=== PATIENT | female | born 1980 | race Caucasian/White ===

== ENCOUNTER 2017-04-30 20:41 | Emergency (ER) | payer OTHER ==
[2017-04-30] MEDS ORDERED: MAG HYDROX/AL HYDROX/SIMETH 30 ML UNIT-DOSE CUP PO ONE (21:35)
[2017-04-30] MEDS ORDERED: LIDOCAINE VISCOUS 2% ORAL/TOP 20 ML UNIT-DOSE CUP MM ONE (21:35)
--- NOTE | 2017-04-30 21:54 | PDOC ---
History of Present Illness - History of Present Illness Initial Comments: 37 year old female with HIV (on ATRIPLA inconsistency) 04/30/17 21:48 04/30/17 21:54 <Ivan Boudreaux - Last Filed: 04/30/17 21:54> <Rosanna Lane - Last Filed: 04/30/17 23:31> - General Stated Complaint: INTOX Time Seen by Provider: 04/30/17 21:14 *Physical Exam - Vital Signs Last Vital Signs Temp Pulse Resp BP Pulse Ox 97.6 F 88 18 111/65 98 04/30/17 22:44 04/30/17 22:44 04/30/17 22:44 04/30/17 22:44 04/30/17 22:44 <Rosanna Lane - Last Filed: 04/30/17 23:31> ED Treatment Course - LABORATORY CBC & Chemistry Diagram: 04/30/17 23:15 04/30/17 23:15 - ADDITIONAL ORDERS Additional order review: 04/30/17 23:15 RBC 4.62 MCV 87.2 MCHC 33.4 RDW 14.5 MPV 8.7 Neutrophils % 72.3 Lymphocytes % 21.3 Monocytes % 5.5 Eosinophils % 0.6 Basophils % 0.3 - Medications Given in the ED: ED Medications Discontinued Medications Generic Name Dose Route Start Last Admin Trade Name Ann PRN Reason Stop Dose Admin Al Hydroxide/Mg Hydroxide 30 ml 04/30/17 21:35 04/30/17 23:02 Mylanta Oral Suspension - PO 04/30/17 21:36 30 ml ONCE ONE Administration Lidocaine HCl 20 ml 04/30/17 21:35 04/30/17 23:02 Xylocaine 2% Viscous Oral - MM 04/30/17 21:36 20 ml ONCE ONE Administration Ondansetron HCl 4 mg 04/30/17 21:57 04/30/17 23:02 Zofran Injection IVPUSH 04/30/17 21:58 4 mg ONCE ONE Administration Sodium Chloride 1,000 ml 04/30/17 21:59 04/30/17 23:02 Normal Saline - IV 04/30/17 22:00 1,000 ml ONCE ONE Administration <Rosanna Lane - Last Filed: 04/30/17 23:31>
[2017-04-30] MEDS ORDERED: ONDANSETRON 4 MG/2 ML VIAL IVPUSH ONE (21:57)
[2017-04-30] MEDS ORDERED: SODIUM CHLORIDE 0.9% 1000 ML INFUS.BAG IV ONE (21:59)
[2017-04-30] MEDS ORDERED: MAG HYDROX/AL HYDROX/SIMETH 30 ML UNIT-DOSE CUP ONE (22:34)
[2017-04-30] MEDS ORDERED: LIDOCAINE VISCOUS 2% ORAL/TOP 20 ML UNIT-DOSE CUP ONE (22:34)
[2017-04-30] MEDS ORDERED: ONDANSETRON 4 MG/2 ML VIAL ONE (22:35)
[2017-04-30 22:46] VITALS: BP 111/65; PULSE 88; TEMP 97.6; BMI 20.1
[2017-04-30 23:25] LABS: BASOPHIL 0.3 % (0-2.0); EOSINOPHIL 0.6 % (0-4.5); MCH 29.1 pg (25.7-33.7); MCHC 33.4 g/dl (32.0-36.0); MEAN CELL VOLUME 87.2 fl (80-96); MEAN PLT VOLUME 8.7 fl (7.5-11.1); NEUTROPHILS 72.3 % (42.8-82.8); PLATELET COUNT 215 K/MM3 (134-434); RDW 14.5 % (11.6-15.6); WHITE BLOOD COUNT 4.5 K/mm3 (4.0-10.0)
--- NOTE | 2017-04-30 23:39 | PDOC ---
History of Present Illness - History of Present Illness Initial Comments: 04/30/17 23:44 The patient is a thin, sickly, 37 year old female, with a significant past medical history of HIV and asthma, who presents to the emergency department with pain to her anterior lower right rib cage and vomiting for about a week. The patient is able to volunteer information about past medical history. She reports her pain as "crampy", 10/10 in severity. She denies chest pain, shortness of breath, headache and dizziness. She denies fever, chills, diarrhea and constipation. She denies dysuria, frequency, urgency and hematuria. Allergies: sulfa drugs Past surgical history: none reported <Gema Ramires - Last Filed: 05/01/17 00:45> <Rosanna Lane - Last Filed: 05/01/17 03:08> - General Chief Complaint: Alcohol intoxication Stated Complaint: INTOX Time Seen by Provider: 04/30/17 21:14 Past History <Gema Ramires - Last Filed: 05/01/17 00:45> - Suicide/Smoking/Psychosocial Hx Smoking History: Current every day smoker Have you smoked in the past 12 months: Yes Number of Cigarettes Smoked Daily: 40 Information on smoking cessation initiated: No Hx Alcohol Use: Yes Drug/Substance Use Hx: No <Rosanna Lane - Last Filed: 05/01/17 03:08> - Past Medical History Allergies/Adverse Reactions: Allergies Allergy/AdvReac Type Severity Reaction Status Date / Time Sulfa (Sulfonamide Allergy Verified 04/30/17 22:46 Antibiotics) Home Medications: Ambulatory Orders NK [No Known Home Medication] 04/30/17 Review of Systems - Review of Systems Able to Perform ROS?: Yes Comments:: 04/30/17 23:44 CONSTITUTIONAL: Absent: fever, chills, diaphoresis, generalized weakness, malaise, loss of appetite HEENT: Absent: rhinorrhea, nasal congestion, throat pain, throat swelling, difficulty swallowing, mouth swelling, ear pain, eye pain, visual Changes CARDIOVASCULAR: Absent: chest pain, syncope, palpitations, irregular heart rate, lightheadedness , peripheral edema RESPIRATORY: Absent: cough, shortness of breath, dyspnea with exertion, orthopnea, wheezing, stridor, hemoptysis GASTROINTESTINAL: (+) right upper abdominal pain, nausea, vomiting, Absent: abdominal distension, diarrhea, constipation, melena, hematochezia GENITOURINARY: Absent: dysuria, frequency, urgency, hesitancy, hematuria, flank pain, genital pain MUSCULOSKELETAL: Absent: myalgia, arthralgia, joint swelling SKIN: Absent: rash, itching, pallor HEMATOLOGIC/IMMUNOLOGIC: Absent: easy bleeding, easy bruising, lymphadenopathy, frequent infections ENDOCRINE: Absent: unexplained weight gain, unexplained weight loss, heat intolerance, cold intolerance NEUROLOGIC: Absent: headache, focal weakness or paresthesias, dizziness, unsteady gait, seizure, mental status changes, bladder or bowel incontinence PSYCHIATRIC: Absent: anxiety, depression, suicidal or homicidal ideation, hallucinations. <Gema Ramires - Last Filed: 05/01/17 00:45> *Physical Exam - Vital Signs Last Vital Signs Temp Pulse Resp BP Pulse Ox 97.6 F 88 18 111/65 98 04/30/17 22:44 04/30/17 22:44 04/30/17 22:44 04/30/17 22:44 04/30/17 22:44 - Physical Exam Comments: 04/30/17 23:46 GENERAL: (+) thin and sick appearing. Awake and alert. No acute distress. HEENT: Normocephalic, atraumatic. PERRLA, EOMI. No conjunctival pallor. Sclera are non- icteric. Moist mucous membranes. Oropharynx is clear. NECK: Supple. Full ROM. No JVD. Carotid pulses 2+ and symmetric, without bruits. No thyromegaly. No lymphadenopathy. CARDIOVASCULAR: Regular rate and rhythm. No murmurs, rubs, or gallops. Distal pulses are 2+ and symmetric. PULMONARY: No evidence of respiratory distress. Lungs clear to auscultation bilaterally. No wheezing, rales or rhonchi. ABDOMINAL: Soft. Non-tender. Non-distended. No rebound or guarding. No organomegaly. Normoactive bowel sounds. MUSCULOSKELETAL Normal range of motion at all joints. No bony deformities or tenderness. No CVA tenderness. EXTREMITIES: No cyanosis. No clubbing. No edema. No calf tenderness. SKIN: Warm and dry. Normal capillary refill. No rashes. No jaundice. NEUROLOGICAL: Alert, awake, appropriate. Cranial nerves 2-12 intact. Normoreflexic in the upper and lower extremities. Normal speech. Toes are down-going bilaterally. Gait is normal without ataxia. PSYCHIATRIC: Cooperative. Good eye contact. Appropriate mood and affect. <Gema Ramires - Last Filed: 05/01/17 00:45> - Vital Signs Last Vital Signs Temp Pulse Resp BP Pulse Ox 97.6 F 88 18 111/65 98 04/30/17 22:44 04/30/17 22:44 04/30/17 22:44 04/30/17 22:44 04/30/17 22:44 <Rosanna Lane - Last Filed: 05/01/17 03:08> ED Treatment Course - LABORATORY CBC & Chemistry Diagram: 04/30/17 23:15 04/30/17 23:15 - ADDITIONAL ORDERS Additional order review: 04/30/17 23:15 RBC 4.62 MCV 87.2 MCHC 33.4 RDW 14.5 MPV 8.7 Neutrophils % 72.3 Lymphocytes % 21.3 Monocytes % 5.5 Eosinophils % 0.6 Basophils % 0.3 - Medications Given in the ED: ED Medications Discontinued Medications Generic Name Dose Route Start Last Admin Trade Name Elliotq PRN Reason Stop Dose Admin Al Hydroxide/Mg Hydroxide 30 ml 04/30/17 21:35 04/30/17 23:02 Mylanta Oral Suspension - PO 04/30/17 21:36 30 ml ONCE ONE Administration Lidocaine HCl 20 ml 04/30/17 21:35 04/30/17 23:02 Xylocaine 2% Viscous Oral - MM 04/30/17 21:36 20 ml ONCE ONE Administration Ondansetron HCl 4 mg 04/30/17 21:57 04/30/17 23:02 Zofran Injection IVPUSH 04/30/17 21:58 4 mg ONCE ONE Administration Sodium Chloride 1,000 ml 04/30/17 21:59 04/30/17 23:02 Normal Saline - IV 04/30/17 22:00 1,000 ml ONCE ONE Administration <Gema Ramires - Last Filed: 05/01/17 00:45> - LABORATORY CBC & Chemistry Diagram: 04/30/17 23:15 04/30/17 23:15 - ADDITIONAL ORDERS Additional order review: 04/30/17 23:15 RBC 4.62 MCV 87.2 MCHC 33.4 RDW 14.5 MPV 8.7 Neutrophils % 72.3 Lymphocytes % 21.3 Monocytes % 5.5 Eosinophils % 0.6 Basophils % 0.3 - Medications Given in the ED: ED Medications Discontinued Medications Generic Name Dose Route Start Last Admin Trade Name Ann PRN Reason Stop Dose Admin Al Hydroxide/Mg Hydroxide 30 ml 04/30/17 21:35 04/30/17 23:02 Mylanta Oral Suspension - PO 04/30/17 21:36 30 ml ONCE ONE Administration Lidocaine HCl 20 ml 04/30/17 21:35 04/30/17 23:02 Xylocaine 2% Viscous Oral - MM 04/30/17 21:36 20 ml ONCE ONE Administration Ondansetron HCl 4 mg 04/30/17 21:57 04/30/17 23:02 Zofran Injection IVPUSH 04/30/17 21:58 4 mg ONCE ONE Administration Sodium Chloride 1,000 ml 04/30/17 21:59 04/30/17 23:02 Normal Saline - IV 04/30/17 22:00 1,000 ml ONCE ONE Administration <Rosanna Lane - Last Filed: 05/01/17 03:08> Medical Decision Making - Medical Decision Making 04/30/17 23:35 37-year-old female who had initially gone to [facility] for alcohol detox for intake was transported here for vomiting and right sided abd pain. [facility] HIV-last week she has her viral load checked and she says it "was not good" She states her regular physician is in the city .she came to [place] for detox She is a thin female in a position on the gurney initially not cooperative but did allow examination and lab work done plan cbc,comp,antiemetics,IVF and reassess <Rosanna Lane - Last Filed: 05/01/17 03:08> *DC/Admit/Observation/Transfer - Attestations Scribe Attestion: 04/30/17 23:51 Documentation prepared by Gema Ramires, acting as medical cost consultant for Rosanna Lane MD <Gema Ramires - Last Filed: 05/01/17 00:45> <Rosanna Lane - Last Filed: 05/01/17 03:08> Diagnosis at time of Disposition: Alcohol abuse - Discharge Dispostion Disposition: HOME Condition at time of disposition: Stable - Referrals Referrals: STAFF,NOT ON [Primary Care Provider] - - Patient Instructions Printed Discharge Instructions: DI for Alcohol Abuse
[2017-05-01 00:08] LABS: ANION GAP 11 (8-16); BILIRUBIN,TOTAL 0.1 mg/dL (0.2-1.0); CALCIUM 8.3 mg/dL (8.5-10.1); CO2 23 mmol/L (21-32); CREATININE 0.6 mg/dL (0.55-1.02); GLUCOSE,RANDOM 79 mg/dL (74-106); MAGNESIUM 2.1 mg/dL (1.8-2.4); PHOSPHOROUS 3.1 mg/dL (2.5-4.9); SGOT/AST 10 U/L (15-37); SGPT/ALT 16 U/L (12-78); TOT PROT 7.4 g/dl (6.4-8.2)
[2017-05-01 00:11] LABS: ALK PHOS 65 U/L (45-117); CPK 92 IU/L (26-192); TROPONIN I < 0.02 ng/ml (0.00-0.05)
[2017-05-01 03:08] LABS: URINE MARIJUANA THC NEGATIVE ng/ml (CUTOFF=50)
--- NOTE | 2017-05-01 10:19 | EKG ---
Test Reason : Blood Pressure : / mmHG Vent. Rate : 082 BPM Atrial Rate : 082 BPM P-R Int : 228 ms QRS Dur : 078 ms QT Int : 384 ms P-R-T Axes : 066 047 054 degrees QTc Int : 448 ms SINUS RHYTHM WITH 1ST DEGREE A-V BLOCK POSSIBLE LEFT ATRIAL ENLARGEMENT SLOW R WAVE PROGRESSION V1-V3 BORDERLINE ECG NO PREVIOUS ECGS AVAILABLE REPEAT EKG IF CLINICALLY INDICATED Confirmed by TYRON SHAH MD ([id number]) on 05/01/2017 10:18:57 AM Referred By: Confirmed By:TYRON SHAH MD
[2017-05-03 13:09] LABS: NYDOH RESULT SEE FILE COPY
[2017-05-17 16:23] LABS: PCP BLOOD NEGATIVE
== END 2017-05-01 03:16 | disposition home or self-care (01) ==
LOC: JER 20:41
PROC: 3E033GC Introduction of Other Therapeutic Substance into Peripheral Vein, Percutaneous Approach (ICD-10-PCS; principal; 2017-04-30)
PROC: 3E0337Z Introduction of Electrolytic and Water Balance Substance into Peripheral Vein, Percutaneous Approach (ICD-10-PCS; 2017-04-30)
DX: F10.10 Alcohol abuse, uncomplicated (principal); J45.909 Unspecified asthma, uncomplicated; F17.210 Nicotine dependence, cigarettes, uncomplicated; Z21 Asymptomatic human immunodeficiency virus [HIV] infection status
CPT/HCPCS: 36415; 80053; 80307; 83690; 83735; 84100; 84484; 84703; 85025; 86359; 86360; 93005; 93010; 99284-25

== ENCOUNTER 2017-05-01 04:44 | Inpatient (IN) | payer OTHER ==
--- NOTE | 2017-05-01 05:07 | HP ---
CIWA Score - CIWA Score Nausea/Vomitin Muscle Tremors: 3 Anxiety: 3 Agitation: 3 Paroxysmal Sweats: 1-Minimal Palms Moist Orientation: 0-Oriented Tacttile Disturbances: 2-Mild Itch/Numbness/Burn Auditory Disturbances: 2-Mild Harshness/Frighten Visual Disturbances: 1-Very Mild Sensitivity Headache: 2-Mild CIWA-Ar Total Score: 20 Admission ROS BHS - HPI Chief Complaint: I NEED HELP TO STOP DRINKING ALCOHOL AND COCAINE Allergies/Adverse Reactions: Allergies Allergy/AdvReac Type Severity Reaction Status Date / Time Sulfa (Sulfonamide Allergy Verified 04/30/17 22:46 Antibiotics) History of Present Illness: THIS 37 YEARS OLD FEMALE WITH ALCOHOL AND COCAINE DEPENDENCE,MEDICALLY CLEAR FROM [facility] ER FOR DETOX, LAST TREATMENT [facility] 01/20 HISTORY OF HIV SINCE 2015 NON OMPLIANCE DID NOT TAKE MEDICATION SINCE 10/20 WEIGHT LOSS NO SIGNIFICANT PERIOD OF SOBRIETY Exam Limitations: No Limitations - Ebola screening Have you traveled outside of the country in the last 21 days: No - Review of Systems Constitutional: Loss of Appetite, Malaise, Night Sweats, Changes in sleep, Weakness, Unintentional Wgt. Loss EENT: reports: Nose Congestion Respiratory: reports: No Symptoms reported Cardiac: reports: Palpitations GI: reports: Diarrhea, Nausea, Poor Appetite, Vomiting : reports: No Symptoms Reported Musculoskeletal: reports: Back Pain, Muscle Pain Integumentary: reports: Dryness Neuro: reports: Headache, Tremors Endocrine: reports: No Symptoms Reported Hematology: reports: No Symptoms Reported, Other (HIV SINCE 2015) Psychiatric: reports: No Sypmtoms Reported, Judgement Intact, Mood/Affect Appropiate, Orientated x3 Patient History - Patient Medical History Hx Anemia: No Hx Asthma: Yes (ON ALBUTEROL INHALER) Hx Chronic Obstructive Pulmonary Disease (COPD): No Hx Cancer: No Hx Cardiac Disorders: No Hx Congestive Heart Failure: No Hx Hypertension: No Hx Hypercholesterolemia: No Hx Pacemaker: No HX Cerebrovascular Accident: No Hx Seizures: No Hx Dementia: No Hx Diabetes: No Hx Gastrointestinal Disorders: No Hx Liver Disease: No Hx Genitourinary Disorders: No Hx Sexually Transmitted Disorders: No Hx Renal Disease (ESRD): No Hx Thyroid Disease: No Hx Human Immunodeficiency Virus (HIV): Yes (SINCE 2015 NON COMPLIANCE DID NOT TAKE MEDICATION SINCE 10/20) Hx Hepatitis C: No Hx Depression: No Hx Suicide Attempt: No Hx Bipolar Disorder: No Hx Schizophrenia: No Other Medical History: NO SUICIDAL,NO HOMICIDAL - Patient Surgical History Past Surgical History: No - PPD History Previous Implant?: Yes Documented Results: Negative w/o proof Implanted On Prior R Admission?: No PPD to be Administered?: Yes - Reproductive History Patient is a Female of Child Bearing Age (11 -55 yrs old): Yes Last Menstrual Period: 04/25/17 Patient : No - Smoking Cessation Smoking history: Current every day smoker Have you smoked in the past 12 months: Yes Aproximately how many cigarettes per day: 20 Hx Chewing Tobacco Use: No Initiated information on smoking cessation: Yes 'Breaking Loose' booklet given: 05/01/17 - Substance & Tx. History Hx Alcohol Use: Yes Hx Substance Use: Yes Substance Use Type: Alcohol, Cocaine Hx Substance Use Treatment: Yes ([facility] 01/20) - Substances Abused Alcohol Route: Oral Frequency: Daily Amount used: 2 PINTS OF VODKA Age of first use: 14 Date of Last Use: 04/30/17 Cocaine Route: Smoking Frequency: Daily Amount used: 40$ Age of first use: 19 Date of Last Use: 04/29/17 Family Disease History - Family Disease History Family History: Denies Admission Physical Exam BHS - Vital Signs Vital Signs: Vital Signs Period Temp Pulse Resp BP Sys/Murphy Pulse Ox Last 24 Hr 96.3 F 81 20 135/107 - Physical General Appearance: Yes: Moderate Distress, Tremorous, Irritable, Sweating, Anxious HEENTM: Yes: Normal ENT Inspection, Pharynx Normal, Pale Conjunctivae L Respiratory: Yes: Lungs Clear, Normal Breath Sounds, No Respiratory Distress Neck: Yes: Supple, Trachea in good position Breast: Yes: Breast Exam Deferred Cardiology: Yes: Within Normal Limits, Regular Rhythm, Regular Rate, S1, S2 Abdominal: Yes: Within Normal Limits, Normal Bowel Sounds, Non Tender, Flat, Soft Genitourinary: Yes: Within Normal Limits Back: Yes: Normal Inspection, Muscle Spasm Musculoskeletal: Yes: Back pain, Muscle Pain Extremities: Yes: Within Normal Limits, Normal Range of Motion, Tremors Neurological: Yes: enrober tender II-XII NML intact, Fully Oriented, Alert, Motor Strength 5/5 Integumentary: Yes: Dry Lymphatic: Yes: Within Normal Limits - Diagnostic (1) Alcohol dependence with uncomplicated withdrawal Current Visit: Yes Status: Acute (2) Alcohol dependence with uncomplicated intoxication Current Visit: Yes Status: Acute (3) Syncope Current Visit: Yes Status: Acute (4) Weight loss Current Visit: Yes Status: Acute (5) HIV (human immunodeficiency virus infection) Current Visit: Yes Status: Acute (6) Nicotine dependence Current Visit: Yes Status: Acute Cleared for Admission BHS - Detox or Rehab S Level of Care: Medically Managed Detox Regimen/Protocol: Librium BHS Breath Alcohol Content Breath Alcohol Content: 0 Vital Signs - Vital Signs Vital Signs Refused: No Temperature: 96.3 F Temperature Source: Oral Pulse Rate: 81 Respiratory Rate: 20 Blood Pressure: 135/107 BP Location: Left Arm - Height Height: 5 ft 2 in - Weight Weight: 103 lb Body Mass Index (BMI): 18.8
[2017-05-01 05:08] VITALS: BMI 18.8
[2017-05-01] MEDS ORDERED: guaiFENesin/D-METHORPHAN HB 10 ML UNIT-DOSE CUPS PO PRN (05:21)
[2017-05-01] MEDS ORDERED: MAGNESIUM CITRATE 300 ML BOTTLE PO PRN (05:21)
[2017-05-01] MEDS ORDERED: ACETAMINOPHEN 325 MG TABLET (FP) PO PRN (05:21)
[2017-05-01] MEDS ORDERED: MENTHOL/PHENOL 1 EACH UD MM PRN (05:21)
[2017-05-01] MEDS ORDERED: chlordiazePOXIDE HCL 25 MG CAPSULE PO PRN (05:21)
[2017-05-01] MEDS ORDERED: MAG HYDROX/AL HYDROX/SIMETH 30 ML UNIT-DOSE CUP PO PRN (05:21)
[2017-05-01] MEDS ORDERED: hydrOXYzine PAMOATE 25 MG CAPSULE (FP) PO PRN (05:21)
[2017-05-01] MEDS ORDERED: LOPERAMIDE HCL 2 MG CAPSULE PO PRN (05:21)
[2017-05-01] MEDS ORDERED: NICOTINE POLACRILEX 2 MG GUM BC PRN (05:21)
[2017-05-01] MEDS ORDERED: MAGNESIUM HYDROX 2400MG/30ML ORAL SUSPENSION 30 ML CUP PO PRN (05:21)
[2017-05-01] MEDS ORDERED: IBUPROFEN 400 MG TABLET (FP) PO PRN (05:21)
[2017-05-01] MEDS ORDERED: P-EPHED 60MG/TRIPROLIDI 2.5MG TABLET PO PRN (05:21)
[2017-05-01] MEDS: chlordiazePOXIDE HCL 25 MG CAPSULE PO SCH ×4 (06:12→22:22)
[2017-05-01] MEDS: PRENATAL VITAMINS W/ FOLIC ACID TABLET (FP) PO SCH (10:30)
[2017-05-01] MEDS: NICOTINE 21 MG/24 HOURS TOPICAL PATCH TD SCH (10:31)
--- NOTE | 2017-05-01 11:44 | PN ---
S CIWA - CIWA Score Nausea/Vomitin-No Nausea/No Vomiting Muscle Tremors: 4-Moderate,w/Arms Extend Anxiety: 3 Agitation: 4-Moderately Restless Paroxysmal Sweats: 3 Orientation: 0-Oriented Tacttile Disturbances: 0-None Auditory Disturbances: 0-None Visual Disturbances: 0-None Headache: 0-None Present CIWA-Ar Total Score: 14 BHS Progress Note (SOAP) Subjective: tired sweats shakes interrupted sleep agitation Objective: 05/01/17 11:43 Vital Signs Temperature 98.1 F 05/01/17 10:38 Pulse Rate 81 05/01/17 10:38 Respiratory Rate 18 05/01/17 10:38 Blood Pressure 117/77 05/01/17 10:38 O2 Sat by Pulse Oximetry (%) labs pending AAOx3 ambulating no acute distress Assessment: 05/01/17 11:43 withdrawal sx Plan: continue detox increase fluids labs pending
[2017-05-01] MEDS: FLU VACCINE QUAD 60 MCG/0.5 ML (MDV 17-18) IM ONE ×2 (13:10→13:26)
[2017-05-01 15:32] LABS: URINE APPEARANCE SLCLOUDY; URINE BILIRUBIN NEGATIVE (NEGATIVE); URINE BLOOD NEGATIVE (NEGATIVE); URINE COLOR DKYELLOW; URINE GLUCOSE (UA) NEGATIVE (NEGATIVE); URINE KETONE NEGATIVE (NEGATIVE); URINE LEUK ESTERASE TRACE (NEGATIVE); URINE NITRITE NEGATIVE (NEGATIVE); URINE UROBILINOGEN NEGATIVE mg/dL (0.2-1.0)
[2017-05-01 15:33] LABS: URINE PROTEIN 1+ (NEGATIVE)
[2017-05-01 15:38] LABS: URINE MUCUS MANY; URINE RBC 1 /hpf (0-3); URINE WBC 8 /hpf (3-5)
[2017-05-01] MEDS: diphenhydrAMINE HCL 50 MG CAPSULE PO PRN (22:22)
[2017-05-01] MEDS: THIAMINE HCL 100 MG TABLET (FP) PO SCH (22:22)
[2017-05-02] MEDS: chlordiazePOXIDE HCL 25 MG CAPSULE PO SCH ×4 (05:56→22:32)
--- NOTE | 2017-05-02 09:52 | EKG ---
Test Reason : Blood Pressure : / mmHG Vent. Rate : 068 BPM Atrial Rate : 068 BPM P-R Int : 222 ms QRS Dur : 070 ms QT Int : 396 ms P-R-T Axes : 068 054 061 degrees QTc Int : 421 ms SINUS RHYTHM WITH MARKED SINUS ARRHYTHMIA WITH 1ST DEGREE A-V BLOCK SEPTAL INFARCT , AGE UNDETERMINED ABNORMAL ECG WHEN COMPARED WITH ECG OF 30-APR-2017 23:18, NO SIGNIFICANT CHANGE WAS FOUND Confirmed by FLORIDA PAUL MD ([id number]) on 05/02/2017 9:52:32 AM Referred By: Confirmed By:FLORIDA PAUL MD
[2017-05-02] MEDS: PRENATAL VITAMINS W/ FOLIC ACID TABLET (FP) PO SCH (10:26)
[2017-05-02] MEDS: NICOTINE 21 MG/24 HOURS TOPICAL PATCH TD SCH (10:26)
--- NOTE | 2017-05-02 11:08 | PN ---
S CIWA - CIWA Score Nausea/Vomitin-No Nausea/No Vomiting Muscle Tremors: 3 Anxiety: 3 Agitation: 3 Paroxysmal Sweats: 3 Orientation: 0-Oriented Tacttile Disturbances: 0-None Auditory Disturbances: 0-None Visual Disturbances: 0-None Headache: 0-None Present CIWA-Ar Total Score: 12 BHS Progress Note (SOAP) Subjective: sweats shakes interrupted sleep tired Objective: 05/02/17 11:04 Vital Signs Temperature 97.5 F L 05/02/17 10:41 Pulse Rate 80 05/02/17 10:41 Respiratory Rate 16 05/02/17 10:41 Blood Pressure 124/80 05/02/17 10:41 O2 Sat by Pulse Oximetry (%) Laboratory Tests 05/01/17 12:15 Urine Color Dkyellow Urine Appearance Slcloudy Urine pH 5.0 Ur Specific [place] >= 1.030 H Urine Protein 1+ H Urine Glucose (UA) Negative Urine Ketones Negative Urine Blood Negative Urine Nitrite Negative Urine Bilirubin Negative Urine Urobilinogen Negative Urine RBC 1 Urine WBC 8 Ur Epithelial Cells Rare Urine Mucus Many rest of labs pending repeat u/a AAOx3 ambulating no acute distress Assessment: 05/02/17 11:05 withdrawal sx Plan: continue detox increase fluids f/u pending labs
[2017-05-02] MEDS ORDERED: PNEUMOC 13-VAL CONJ-DIP CRM/PF 0.5 ML DISP.SYRIN IM ONE (12:00)
[2017-05-02 13:35] LABS: MCH 28.7 pg (25.7-33.7); MCHC 32.5 g/dl (32.0-36.0); MEAN CELL VOLUME 88.1 fl (80-96); MEAN PLT VOLUME 9.2 fl (7.5-11.1); PLATELET COUNT 179 K/MM3 (134-434); RDW 14.1 % (11.6-15.6); WHITE BLOOD COUNT 3.8 K/mm3 (4.0-10.0)
[2017-05-02 14:20] LABS: ALBUMIN 3.1 g/dl (3.4-5.0); ANION GAP 7 (8-16); CALCIUM 8.4 mg/dL (8.5-10.1); CO2 28 mmol/L (21-32); CREATININE 0.7 mg/dL (0.55-1.02); GLUCOSE,RANDOM 97 mg/dL (74-106); SGOT/AST 7 U/L (15-37); SGPT/ALT 12 U/L (12-78)
[2017-05-02 14:21] LABS: ALK PHOS 56 U/L (45-117); BILIRUBIN,TOTAL 0.2 mg/dL (0.2-1.0); TOT PROT 5.8 g/dl (6.4-8.2)
[2017-05-02 15:53] LABS: SICKLE CELL SCREEN NEGATIVE (NEGATIVE)
[2017-05-02 17:19] LABS: URINE APPEARANCE CLOUDY; URINE BILIRUBIN NEGATIVE (NEGATIVE); URINE BLOOD NEGATIVE (NEGATIVE); URINE COLOR YELLOW; URINE GLUCOSE (UA) NEGATIVE (NEGATIVE); URINE KETONE NEGATIVE (NEGATIVE); URINE LEUK ESTERASE TRACE (NEGATIVE); URINE NITRITE NEGATIVE (NEGATIVE); URINE PROTEIN NEGATIVE (NEGATIVE); URINE UROBILINOGEN NEGATIVE mg/dL (0.2-1.0)
[2017-05-02 17:49] LABS: CALCIUM OXALATE CRYSTALS FEW /hpf (NONE SEEN); URINE BACTERIA FEW /hpf (NONE SEEN); URINE MUCUS MANY; URINE RBC 8 /hpf (0-3); URINE WBC 22 /hpf (3-5)
[2017-05-02] MEDS: THIAMINE HCL 100 MG TABLET (FP) PO SCH (22:32)
[2017-05-02] MEDS: diphenhydrAMINE HCL 50 MG CAPSULE PO PRN (22:32)
[2017-05-03] MEDS: chlordiazePOXIDE 5 MG CAPSULE PO SCH ×4 (05:25→22:19)
[2017-05-03] MEDS: PRENATAL VITAMINS W/ FOLIC ACID TABLET (FP) PO SCH (10:37)
[2017-05-03] MEDS: NICOTINE 21 MG/24 HOURS TOPICAL PATCH TD SCH (10:37)
[2017-05-03] MEDS: ALBUTEROL SO4 18 GM HFA INHALER IH PRN (10:39)
--- NOTE | 2017-05-03 11:51 | PN ---
BHS Progress Note (SOAP) Subjective: sweats Objective: 05/03/17 11:50 Vital Signs Temperature 98.1 F 05/03/17 06:57 Pulse Rate 89 05/03/17 06:57 Respiratory Rate 18 05/03/17 06:57 Blood Pressure 106/73 05/03/17 06:57 O2 Sat by Pulse Oximetry (%) Laboratory Tests 05/01/17 05/02/17 05/02/17 12:15 08:45 08:45 WBC 3.8 L RBC 4.14 Hgb 11.9 D Hct 36.5 MCV 88.1 MCH 28.7 MCHC 32.5 RDW 14.1 Plt Count 179 MPV 9.2 Sickle Cell Screen Negative Sodium 143 Potassium 3.1 L D Chloride 108 H Carbon Dioxide 28 D Anion Gap 7 L BUN 9 Creatinine 0.7 Creat Clearance w eGFR > 60 Random Glucose 97 D Calcium 8.4 L Total Bilirubin 0.2 D AST 7 L D ALT 12 D Alkaline Phosphatase 56 Total Protein 5.8 L D Albumin 3.1 L D Urine Color Dkyellow Urine Appearance Slcloudy Urine pH 5.0 Ur Specific [place] >= 1.030 H Urine Protein 1+ H Urine Glucose (UA) Negative Urine Ketones Negative Urine Blood Negative Urine Nitrite Negative Urine Bilirubin Negative Urine Urobilinogen Negative Urine RBC 1 Urine WBC 8 Ur Epithelial Cells Rare Calcium Oxalate Crystal Urine Bacteria Urine Mucus Many RPR Titer 05/02/17 05/02/17 08:45 14:00 WBC RBC Hgb Hct MCV MCH MCHC RDW Plt Count MPV Sickle Cell Screen Sodium Potassium Chloride Carbon Dioxide Anion Gap BUN Creatinine Creat Clearance w eGFR Random Glucose Calcium Total Bilirubin AST ALT Alkaline Phosphatase Total Protein Albumin Urine Color Yellow Urine Appearance Cloudy Urine pH 6.0 Ur Specific [place] 1.020 Urine Protein Negative Urine Glucose (UA) Negative Urine Ketones Negative Urine Blood Negative Urine Nitrite Negative Urine Bilirubin Negative Urine Urobilinogen Negative Urine RBC 8 Urine WBC 22 Ur Epithelial Cells Rare Calcium Oxalate Crystal Few Urine Bacteria Few Urine Mucus Many RPR Titer Nonreactive repeated u/a shows WBC 22; pt denies of any urinary problems encouraged increase water intake AAOx3 ambulating no acute distress Assessment: 05/03/17 11:51 mild withdrawal sx Plan: continue detox increase fluids d/c in am
[2017-05-03] MEDS: POTASSIUM CHLORIDE TABS 20 MEQ TABLET.ER (FP) PO SCH (12:34)
[2017-05-03] MEDS: diphenhydrAMINE HCL 50 MG CAPSULE PO PRN (22:19)
[2017-05-03] MEDS: THIAMINE HCL 100 MG TABLET (FP) PO SCH (22:19)
[2017-05-04] MEDS ORDERED: chlordiazePOXIDE HCL 10 MG CAPSULE PO SCH (05:00)
[2017-05-04] MEDS: ALBUTEROL SO4 18 GM HFA INHALER IH PRN (05:41)
[2017-05-04 06:34] VITALS: BP 100/70; PULSE 90; TEMP 98.2
--- NOTE | 2017-05-04 09:34 | DS ---
[facility] Detox Discharge Summary Admission Date: 05/01/17 Discharge Date: 05/04/17 - History Present History: Alcohol Dependence - Physical Exam Results Vital Signs: Vital Signs Temperature 98.2 F 05/04/17 06:00 Pulse Rate 90 05/04/17 06:00 Respiratory Rate 16 05/04/17 06:00 Blood Pressure 100/70 05/04/17 06:00 O2 Sat by Pulse Oximetry (%) - Treatment Hospital Course: Detox Protocol Followed, Detoxed Safely, Responded well, Discharged Condition Good, Rehab Referral Accepted - Medication Discharge Medications: Ambulatory Orders Efavirenz/Emtricitab/Tenofovir [Atripla -] 1 tab PO DAILY 05/01/17 - Diagnosis (1) Alcohol dependence with uncomplicated withdrawal Current Visit: Yes Status: Chronic (2) HIV (human immunodeficiency virus infection) Current Visit: Yes Status: Chronic (3) Nicotine dependence Current Visit: Yes Status: Chronic Qualifiers: Nicotine product type: cigarettes Substance use status: uncomplicated Qualified Code(s): F17.210 - Nicotine dependence, cigarettes, uncomplicated (4) Syncope Current Visit: No Status: Suspected - AMA Did Patient Leave Against Medical Advice: No (going home)
[2017-05-04] MEDS: POTASSIUM CHLORIDE TABS 20 MEQ TABLET.ER (FP) PO SCH (09:48)
[2017-05-04] MEDS: PRENATAL VITAMINS W/ FOLIC ACID TABLET (FP) PO SCH (09:48)
[2017-05-04] MEDS: NICOTINE 21 MG/24 HOURS TOPICAL PATCH TD SCH (09:49)
== END 2017-05-04 09:51 | disposition home or self-care (01) | DRG 774 ==
LOC: YASAS 04:44 → Y6N 04:47
PROVIDERS: ADMIT Internal Medicine; ATTEND Internal Medicine
PROC: HZ2ZZZZ Detoxification Services for Substance Abuse Treatment (ICD-10-PCS; principal; 2017-05-01)
DX: F10.230 Alcohol dependence with withdrawal, uncomplicated (principal); F14.20 Cocaine dependence, uncomplicated; F17.210 Nicotine dependence, cigarettes, uncomplicated; Z21 Asymptomatic human immunodeficiency virus [HIV] infection status; R55 Syncope and collapse; J45.909 Unspecified asthma, uncomplicated
CPT/HCPCS: 36415; 80053; 81003; 81015; 85027; 85660; 86593; 90670; 90688; 93005; 93010; G0008; G0009

== ENCOUNTER 2021-09-04 10:53 | Inpatient (IN) | payer OTHER ==
[2021-09-04 11:24] VITALS: BMI 21.2
[2021-09-04] MEDS ORDERED: chlordiazePOXIDE HCL 25 MG CAPSULE PO PRN (12:24)
[2021-09-04] MEDS ORDERED: ONDANSETRON *ODT* 4 MG TABLET SL PRN (12:25)
[2021-09-04] MEDS ORDERED: MAGNESIUM HYDROX 2400MG/30ML ORAL SUSPENSION 30 ML CUP PO PRN (12:25)
[2021-09-04] MEDS ORDERED: MAG HYDROX/AL HYDROX/SIMETH 30 ML UNIT-DOSE CUP PO PRN (12:25)
[2021-09-04] MEDS ORDERED: ACETAMINOPHEN 325 MG TABLET (FP) PO PRN (12:25)
[2021-09-04] MEDS ORDERED: MENTHOL/PHENOL 1 EACH UD MM PRN (12:25)
[2021-09-04] MEDS ORDERED: IBUPROFEN 400 MG TABLET (FP) PO PRN (12:25)
[2021-09-04] MEDS ORDERED: BISMUTH SUBSALICYLATE 524 MG/30 ML PO PRN (12:25)
[2021-09-04] MEDS ORDERED: MAGNESIUM CITRATE 300 ML BOTTLE PO PRN (12:25)
[2021-09-04] MEDS ORDERED: ALBUTEROL SO4 HFA INHALER IH PRN (14:23)
[2021-09-04] MEDS: hydrOXYzine PAMOATE 25 MG CAPSULE (FP) PO SCH ×3 (14:49→22:26)
[2021-09-04] MEDS: NICOTINE 21 MG/24 HOURS TOPICAL PATCH TD SCH (14:56)
[2021-09-04] MEDS: NICOTINE 10 MG CARTRIDGE (INHALER) IH PRN (15:28)
[2021-09-04] MEDS: chlordiazePOXIDE HCL 25 MG CAPSULE PO SCH ×2 (17:27→22:26)
[2021-09-04] MEDS: MELATONIN 5 MG TABLETS PO SCH (22:25)
[2021-09-04] MEDS: THIAMINE HCL 100 MG TABLET (FP) PO SCH (22:26)
[2021-09-05] MEDS: chlordiazePOXIDE HCL 25 MG CAPSULE PO SCH ×4 (05:50→22:25)
[2021-09-05] MEDS: hydrOXYzine PAMOATE 25 MG CAPSULE (FP) PO SCH ×5 (05:51→22:25)
[2021-09-05] MEDS: NICOTINE POLACRILEX 2 MG GUM BUC PRN ×2 (05:53→10:46)
[2021-09-05] MEDS ORDERED: PATIENT'S OWN MEDICATION (NON-FORMULARY) (Bictegrav/Emtricit/Tenofov Ala [Biktarvy 50-200- PO SCH (10:00)
[2021-09-05 10:23] LABS: HEMATOCRIT 39.9 % (32.4-45.2); HEMOGLOBIN 12.7 GM/dL (10.7-15.3); MCH 30.1 pg (25.7-33.7); MCHC 31.8 g/dl (32.0-36.0); MEAN CELL VOLUME 94.5 fl (80-96); MEAN PLT VOLUME 9.6 fl (7.5-11.1); PLATELET COUNT 237 10^3/uL (134-434); RBC 4.22 M/mm3 (3.60-5.2); RDW 15.3 % (11.6-15.6); WHITE BLOOD COUNT 5.7 K/mm3 (4.0-10.0)
[2021-09-05 10:29] LABS: BLOOD UREA NITROGEN 14.4 mg/dL (7-18)
[2021-09-05 10:30] LABS: CALCIUM 8.6 mg/dL (8.5-10.1)
[2021-09-05 10:34] LABS: CREATININE 0.8 mg/dL (0.55-1.3)
[2021-09-05 10:36] LABS: BILIRUBIN,TOTAL 0.2 mg/dL (0.2-1)
[2021-09-05 10:37] LABS: TOT PROT 5.5 g/dl (6.4-8.2)
[2021-09-05] MEDS: NICOTINE 21 MG/24 HOURS TOPICAL PATCH TD SCH (10:41)
[2021-09-05] MEDS: METHOCARBAMOL 500 MG TABLET PO PRN (10:42)
[2021-09-05] MEDS: PRENATAL VITAMINS W/ FOLIC ACID TABLET (FP) PO SCH (10:42)
[2021-09-05] MEDS: NICOTINE 10 MG CARTRIDGE (INHALER) IH PRN (10:42)
[2021-09-05] MEDS: ACETAMINOPHEN 325 MG TABLET (FP) PO PRN (10:45)
[2021-09-05] MEDS: THIAMINE HCL 100 MG TABLET (FP) PO SCH (22:25)
[2021-09-05] MEDS: MELATONIN 5 MG TABLETS PO SCH (22:26)
[2021-09-06] MEDS: hydrOXYzine PAMOATE 25 MG CAPSULE (FP) PO SCH ×6 (06:03→22:40)
[2021-09-06] MEDS: chlordiazePOXIDE HCL 25 MG CAPSULE PO SCH ×4 (06:03→22:40)
[2021-09-06] MEDS: BICTEGRAV/EMTRICIT/TENOFOV (BIKTARVY) 50-200-25 MG TABLET PO SCH (08:22)
[2021-09-06] MEDS: METHOCARBAMOL 500 MG TABLET PO PRN (10:31)
[2021-09-06] MEDS: PRENATAL VITAMINS W/ FOLIC ACID TABLET (FP) PO SCH (10:31)
[2021-09-06] MEDS: NICOTINE 21 MG/24 HOURS TOPICAL PATCH TD SCH (10:32)
[2021-09-06] MEDS: ACETAMINOPHEN 325 MG TABLET (FP) PO PRN (17:34)
[2021-09-06] MEDS: NICOTINE 10 MG CARTRIDGE (INHALER) IH PRN (18:01)
[2021-09-06] MEDS: MELATONIN 5 MG TABLETS PO SCH (22:40)
[2021-09-06] MEDS: THIAMINE HCL 100 MG TABLET (FP) PO SCH (22:40)
[2021-09-07] MEDS ORDERED: chlordiazePOXIDE HCL 10 MG CAPSULE PO PRN
[2021-09-07] MEDS: chlordiazePOXIDE HCL 10 MG CAPSULE PO SCH ×4 (05:47→22:34)
[2021-09-07] MEDS: hydrOXYzine PAMOATE 25 MG CAPSULE (FP) PO SCH ×5 (05:47→22:33)
[2021-09-07] MEDS: METHOCARBAMOL 500 MG TABLET PO PRN ×3 (05:49→22:36)
[2021-09-07] MEDS: NICOTINE POLACRILEX 2 MG GUM BUC PRN ×2 (05:53→17:43)
[2021-09-07] MEDS: BICTEGRAV/EMTRICIT/TENOFOV (BIKTARVY) 50-200-25 MG TABLET PO SCH (07:35)
[2021-09-07] MEDS: PRENATAL VITAMINS W/ FOLIC ACID TABLET (FP) PO SCH (10:57)
[2021-09-07] MEDS: NICOTINE 21 MG/24 HOURS TOPICAL PATCH TD SCH ×2 (11:00→15:39)
[2021-09-07] MEDS: THIAMINE HCL 100 MG TABLET (FP) PO SCH (22:33)
[2021-09-07] MEDS: MELATONIN 5 MG TABLETS PO SCH (22:34)
[2021-09-08] MEDS ORDERED: chlordiazePOXIDE HCL 10 MG CAPSULE PO SCH (05:00)
[2021-09-08] MEDS: hydrOXYzine PAMOATE 25 MG CAPSULE (FP) PO SCH (05:46)
[2021-09-08] MEDS: METHOCARBAMOL 500 MG TABLET PO PRN (05:48)
[2021-09-08] MEDS: BICTEGRAV/EMTRICIT/TENOFOV (BIKTARVY) 50-200-25 MG TABLET PO SCH (08:04)
[2021-09-08 09:27] VITALS: BP 114/73; PULSE 88; TEMP 97.8
[2021-09-09] MEDS ORDERED: chlordiazePOXIDE HCL 10 MG CAPSULE PO ONE (05:00)
== END 2021-09-08 09:38 | disposition home or self-care (01) | DRG 774 ==
LOC: YASAS 10:53 → Y6N 14:06
PROVIDERS: ADMIT Allergy & Immunology; ATTEND Allergy & Immunology
PROC: HZ2ZZZZ Detoxification Services for Substance Abuse Treatment (ICD-10-PCS; principal; 2021-09-04)
DX: F10.230 Alcohol dependence with withdrawal, uncomplicated (principal); F14.20 Cocaine dependence, uncomplicated; F17.210 Nicotine dependence, cigarettes, uncomplicated; F19.24 Other psychoactive substance dependence with psychoactive substance-induced mood disorder; F41.8 Other specified anxiety disorders; F32.A Depression, unspecified; Z21 Asymptomatic human immunodeficiency virus [HIV] infection status; J45.909 Unspecified asthma, uncomplicated; R63.4 Abnormal weight loss; Z68.21 Body mass index [BMI] 21.0-21.9, adult; Z88.2 Allergy status to sulfonamides; Z91.013 Allergy to seafood
CPT/HCPCS: 36415; 80053; 81025; 85027; 86780; C9803; Q0162; U0003; U0005